=== PATIENT | female | born 1985 | race African-American/Black ===

== ENCOUNTER 2020-05-31 06:15 | Inpatient (IN) | payer OTHER ==
[2020-05-31] MEDS: ELECTROLYTE-148 SOLN 1,000 ML IV SCH ×2 (08:10→12:36)
--- NOTE | 2020-05-31 08:14 | HP ---
Past Medical History - Admission Chief Complaint: contraction, leakage of fluid History Source: Patient - Past Medical History ...: 4 ...Para: 2 ...Term: 0 ...: 0 ...Spon : 0 ...Induced : 1 ...Living Children: 2 ... Weeks Gestation by Dates: 40 - Past Surgical History Hx Myomectomy: No Hx Transabdominal Cerclage: No - Alcohol/Substance Use Hx Alcohol Use: No History of Substance Use: reports: None Home Medications - Allergies Allergies/Adverse Reactions: Allergies Allergy/AdvReac Type Severity Reaction Status Date / Time No Known Allergies Allergy Verified 05/31/20 08:00 Review of Systems - Review of Systems Constitutional: reports: No Symptoms Cardiovascular: reports: No Symptoms Respiratory: reports: No Symptoms Gastrointestinal: reports: No Symptoms Genitourinary: reports: No Symptoms Physical Exam - Maternity Constitutional: Yes: Well Nourished Cardiovascular: Yes: WNL Lungs: Clear to auscultation - Abdominal Exam/OB Fundal Height: 40 Number of Fetuses: Single Presentation: Vertex Contractions: Yes Regularity: Regular Heart Rate (range): 140 Category: I Accelerations: Uniform Decelerations: None - Vaginal Exam/OB Dilatation (cm): 4 Effacement (%): 80 Amniotic Membrane Status: Leaking Amniotic Fluid: Yes: Clear Presentation: Vertex/Position Station: 0 Hemorrhage Risk Assessment - Risk Factors Medium Risk Factors: Yes: None High Risk Factors: Yes: None Risk Score: 1 Risk Level: Medium Risk Problem List - Problems (1) 40 weeks gestation of Code(s): Z3A.40 - 40 WEEKS GESTATION OF Assessment/Plan 34yo 2 40W3D, GBS negative Admit to labor and delivery labs Informed consent anticipate vagial delivery
[2020-05-31 08:25] LABS: POC NITRAZINE NEG
[2020-05-31 09:01] LABS: BASO % 0.6 % (0-2.0); EOS % 0.7 % (0-4.5); HEMATOCRIT 34.5 % (32.4-45.2); HEMOGLOBIN 11.3 GM/dL (10.7-15.3); INR 0.98 (0.83-1.09); LYMPH % 15.3 % (8-40); MCH 29.1 pg (25.7-33.7); MCHC 32.9 g/dl (32.0-36.0); MEAN CELL VOLUME 88.5 fl (80-96); MEAN PLT VOLUME 9.8 fl (7.5-11.1); MONO % 5.8 % (3.8-10.2); NEUT % 77.6 % (42.8-82.8); PROTHROMBIN TIME (PATIENT) 11.6 SEC (9.7-13.0); RDW 18.5 % (11.6-15.6); WHITE BLOOD COUNT 10.6 K/mm3 (4.0-10.0)
[2020-05-31 09:02] VITALS: BMI 41.1
[2020-05-31 09:04] LABS: ACTIVATED PTT 21.5 SECONDS (25.2-36.5)
[2020-05-31] MEDS ORDERED: BUTORPHANOL TARTRATE 1 MG/ML VIAL IVPB ONE (09:15)
[2020-05-31 09:24] LABS: ALBUMIN 3.1 g/dl (3.4-5.0); BILIRUBIN,TOTAL 0.3 mg/dL (0.2-1); BLOOD UREA NITROGEN 5.6 mg/dL (7-18); CALCIUM 9.3 mg/dL (8.5-10.1); CREATININE 0.5 mg/dL (0.55-1.3); POTASSIUM 3.7 mmol/L (3.5-5.1); TOT PROT 6.7 g/dl (6.4-8.2)
[2020-05-31] MEDS ORDERED: FENTANYL/BUPIVACAINE/NS/PF - PCEA - 50 ML DISP.SYRIN EP ONE (11:01)
[2020-05-31] MEDS ORDERED: PCA PUMP NR ONE (11:02)
--- NOTE | 2020-05-31 11:05 | PD.OB.PROG ---
Past Medical History - Primary Care Physician PCP:: Helena Esqueda Documenting Provider Type: Laborist - Admission Chief Complaint: painful contractions History of Present Illness: ROM, in labor. Given Stadol/Phenergan. 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 Weeks Gestation by Dates: 40.2 ...EDC by Dates: 05/29/20 ...EDC by Sono: 05/23/20 Heme/Onc: Denies/None Infectious Disease: Denies/None Psych: Denies/None Musculoskeletal: Denies/None Rheumatology: Denies/None ENT: Denies/None Endocrine: Denies/None Dermatology: Denies/None - Past Surgical History Past Surgical History: Yes: None - Smoking History Smoking history: Never smoked Have you smoked in the past 12 months: No - Alcohol/Substance Use Hx Alcohol Use: No History of Substance Use: reports: None Review of Systems - Review of Systems Constitutional: reports: No Symptoms Eyes: reports: No Symptoms HENT: reports: No Symptoms Neck: reports: No Symptoms Cardiovascular: reports: No Symptoms Respiratory: reports: No Symptoms Gastrointestinal: reports: No Symptoms Genitourinary: reports: No Symptoms Breasts: reports: No Symptoms Reported Musculoskeletal: reports: No Symptoms Integumentary: reports: No Symptoms Neurological: reports: No Symptoms Endocrine: reports: No Symptoms Hematology/Lymphatic: reports: No Symptoms Psychiatric: reports: No Symptoms Physical Exam - Obstetrical Vital Signs: Vital Signs Temperature 98.2 F 07/08/20 08:47 Pulse Rate 88 05/31/20 08:47 Respiratory Rate 20 05/31/20 08:47 Blood Pressure 136/81 05/31/20 08:47 O2 Sat by Pulse Oximetry (%) Constitutional: Yes: Well Nourished, No Distress, Calm Eyes: Yes: WNL, Conjunctiva Clear, EOM Intact HENT: Yes: WNL, Atraumatic, Normocephalic Neck: Yes: WNL, Supple, Trachea Midline Cardiovascular: Yes: WNL, Regular Rate and Rhythm Lungs: Clear to auscultation Breast(s): Yes: WNL - Abdominal Exam/OB Fundal Height: 40 Number of Fetuses: Single Presentation: Vertex Contractions: Yes Regularity: Regular Intensity: Mod/Strong Monitor Mode: External Heart Rate (range): 140 Heart Rate Location: [facility] Category: I Accelerations: Uniform Decelerations: None - Vaginal Exam/OB Vaginal Exam Deferred: Yes Vaginal Bleeding: No Dilatation (cm): 5 Effacement (%): 70 Amniotic Membrane Status: Ruptured Amniotic Fluid: Yes: Clear Presentation: Vertex/Position Station: -1 - Physical Exam Musculoskeletal: Yes: WNL - Labs Lab Results: CBC, BMP 05/31/20 08:25 05/31/20 08:25 Problem List - Problems (1) Active labor Code(s): [id number] - Assessment/Plan Active labor. Needs pain relief. Epidural offered; pt accepts. Expecting .
[2020-05-31] MEDS ORDERED: NALOXONE HCL 0.4 MG/ML VIAL IVPUSH PRN (12:21)
[2020-05-31] MEDS ORDERED: FENTANYL/BUPIVACAINE/NS/PF - PCEA - 50 ML DISP.SYRIN EP SCH (12:30)
[2020-05-31 13:45] LABS: BASO % 0.2 % (0-2.0); EOS % 0.1 % (0-4.5); HEMATOCRIT 34.8 % (32.4-45.2); HEMOGLOBIN 11.3 GM/dL (10.7-15.3); LYMPH % 4.7 % (8-40); MCH 28.8 pg (25.7-33.7); MCHC 32.4 g/dl (32.0-36.0); MEAN CELL VOLUME 89.1 fl (80-96); MEAN PLT VOLUME 9.1 fl (7.5-11.1); MONO % 3.8 % (3.8-10.2); NEUT % 91.2 % (42.8-82.8); PLATELET COUNT 185 K/MM3 (134-434); RBC 3.91 M/mm3 (3.60-5.2); RDW 18.5 % (11.6-15.6); WHITE BLOOD COUNT 14.2 K/mm3 (4.0-10.0)
[2020-05-31] MEDS ORDERED: OXYTOCIN 30 UNITS in 0.9% NS 30 UNIT/500 ML INFUS.BAG IVPB ONE (14:22)
--- NOTE | 2020-05-31 14:27 | PN ---
Progress Note (short form) - Note Progress Note: Full term gestation in labor BP 140-150/70 - 90/mmHg EFM - Baseline 140/min, moderate variability, accelerations, no decelerations Tocos - q8 Pelvic - 8cm/100%/0 Plan - Full term gestation in labor For oxytocin augmentation Anticipate vaginal delivery
[2020-05-31] MEDS ORDERED: OXYTOCIN 30 UNITS in 0.9% NS 30 UNIT/500 ML INFUS.BAG IVPB SCH (14:30)
[2020-05-31 14:35] LABS: ANISOCYTOSIS 1+; MACROCYTOSIS 0; OVALOCYTE 1+; PLATELET ESTIMATE NORMAL
[2020-05-31] MEDS ORDERED: OXYTOCIN 20 UNITS in 0.9% NS 20 UNIT/1,000 ML INFUS.BAG IV ONE (14:44)
[2020-05-31] MEDS ORDERED: BUPIVACAINE HCL/PF 0.25% (2.5MG/ML) 10 ML VIAL ONE (15:27)
--- NOTE | 2020-05-31 16:56 | PN ---
Progress Note (short form) - Note Progress Note: Full term gestation in labor VSS, afebrile EFM - Baseline 140/min. moderate variability, accelerations, no decelerations Tocos q 4 Pelvic - Anterior lip/100%/0 Plan - Anticipate vaginal delivery
[2020-05-31 18:24] LABS: CORD BASE EXCESS -7.2 mmol/L (0-2); CORD HCO3 20.7 mmHg (20-29); CORD PCO2 50.9 mmHg (30-78); CORD pH 7.228 (7.14-7.44)
[2020-05-31 18:27] LABS: CORD BASE EXCESS -2.6 mmol/L (0-2); CORD HCO3 21.4 mmHg (20-29); CORD PCO2 35.2 mmHg (30-78); CORD pH 7.401 (7.14-7.44)
[2020-05-31] MEDS ORDERED: BENZOCAINE 28 GM HEMORRHOIDAL OINTMENT TP PRN (18:55)
[2020-05-31] MEDS ORDERED: METHYLERGONOVINE MALEATE 0.2 MG/1 ML AMP IM PRN (18:55)
[2020-05-31] MEDS ORDERED: BENZOCAINE 20% 57 GM BOTTLE TP PRN (18:55)
[2020-05-31] MEDS ORDERED: WITCH HAZEL 50% (TUCKS) 40 PAD/JAR PAD TP PRN (18:55)
[2020-05-31] MEDS ORDERED: ACETAMINOPHEN 325 MG TABLET (FP) PO PRN (18:55)
[2020-05-31] MEDS ORDERED: IBUPROFEN 600 MG TABLET (FP) PO PRN (18:55)
--- NOTE | 2020-05-31 18:55 | PN ---
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
[2020-05-31] MEDS ORDERED: OXYTOCIN 20 UNITS in 0.9% NS 20 UNIT/1,000 ML INFUS.BAG IV SCH (19:00)
[2020-05-31] MEDS ORDERED: FERROUS SO4 325 MG TABLET (FP) PO SCH (19:00)
[2020-05-31] MEDS ORDERED: DOCUSATE SODIUM 100 MG CAPSULE (FP) PO SCH (22:00)
[2020-06-01 08:38] LABS: BASO % 0.1 % (0-2.0); EOS % 0.5 % (0-4.5); HEMOGLOBIN 9.8 GM/dL (10.7-15.3); LYMPH % 13.9 % (8-40); MCH 29.2 pg (25.7-33.7); MCHC 32.8 g/dl (32.0-36.0); MEAN CELL VOLUME 89.1 fl (80-96); MEAN PLT VOLUME 9.2 fl (7.5-11.1); MONO % 9.7 % (3.8-10.2); NEUT % 75.8 % (42.8-82.8); PLATELET COUNT 171 K/MM3 (134-434); RBC 3.37 M/mm3 (3.60-5.2); RDW 17.7 % (11.6-15.6); WHITE BLOOD COUNT 12.9 K/mm3 (4.0-10.0)
[2020-06-01] MEDS: PRENATAL VITAMINS W/ FOLIC ACID TABLET (FP) PO SCH (10:18)
[2020-06-01] MEDS ORDERED: SENNOSIDES/DOCUSATE COMBO (SENNA PLUS) TABLET (UD) PO PRN (22:00)
--- NOTE | 2020-06-01 22:42 | PN ---
Post Progress Note Post Day: 1 Type of Delivery: Vital Signs: Vital Signs Temperature 98.7 F 06/01/20 21:56 Pulse Rate 81 06/01/20 21:56 Respiratory Rate 18 06/01/20 21:56 Blood Pressure 133/66 06/01/20 21:56 O2 Sat by Pulse Oximetry (%) 99 05/31/20 18:15 Breast Exam: Yes: Soft Uterus: Yes: Fundus Firm, Fundus below umbilicus, Non-tender Abdomen/GI: Yes: Abdomen soft, Tolerating PO Lochia: Yes: Rubra Lochia, amount: Small Extremities: Yes: Calves non-tender Perineum: Yes: Intact Activity: Ambulating - Labs Labs: CBC WBC 12.9 K/mm3 (4.0-10.0) H 06/01/20 07:18 Corrected WBC (auto) Technical Lead 05/31/20 08:25 RBC 3.37 M/mm3 (3.60-5.2) L 06/01/20 07:18 Hgb 9.8 GM/dL (10.7-15.3) L 06/01/20 07:18 Hct 30.0 % (32.4-45.2) L 06/01/20 07:18 MCV 89.1 fl (80-96) 06/01/20 07:18 MCH 29.2 pg (25.7-33.7) 06/01/20 07:18 MCHC 32.8 g/dl (32.0-36.0) 06/01/20 07:18 RDW 17.7 % (11.6-15.6) H 06/01/20 07:18 Plt Count 171 K/MM3 (134-434) 06/01/20 07:18 MPV 9.2 fl (7.5-11.1) 06/01/20 07:18 Absolute Neuts (auto) 9.8 K/mm3 (1.5-8.0) H 06/01/20 07:18 Neutrophils % 75.8 % (42.8-82.8) 06/01/20 07:18 Neutrophils % (Manual) 90.1 % (42.8-82.8) H 05/31/20 13:20 Band Neutrophils % 1.0 % 05/31/20 13:20 Lymphocytes % 13.9 % (8-40) D 06/01/20 07:18 Lymphocytes % (Manual) 3.0 % (8-40) L 05/31/20 13:20 Monocytes % 9.7 % (3.8-10.2) D 06/01/20 07:18 Monocytes % (Manual) 5 % (3.8-10.2) 05/31/20 13:20 Eosinophils % 0.5 % (0-4.5) D 06/01/20 07:18 Eosinophils % (Manual) 0.0 % (0-4.5) 05/31/20 13:20 Basophils % 0.1 % (0-2.0) 06/01/20 07:18 Basophils % (Manual) 0.0 % (0-2.0) 05/31/20 13:20 Myelocytes % (Man) 1 % (0-2) 05/31/20 13:20 Promyelocytes % (Man) 0 % (0-2) 05/31/20 13:20 Blast Cells % (Manual) 0 % (0-0) 05/31/20 13:20 Nucleated RBC % 0 % (0-0) 06/01/20 07:18 Metamyelocytes 0 % (0-2) 05/31/20 13:20 Hypochromia 0 05/31/20 13:20 Platelet Estimate Normal 05/31/20 13:20 Platelet Comment Technical Lead 05/31/20 08:25 Polychromasia 0 05/31/20 13:20 Poikilocytosis 1+ 05/31/20 13:20 Anisocytosis 1+ 05/31/20 13:20 Macrocytosis 0 05/31/20 13:20 Ovalocytes 1+ 05/31/20 13:20 [place] Cells 1+ 05/31/20 13:20 Assessment/Plan S/P , ppd #1, with no complaints Continue management.
--- NOTE | 2020-06-02 08:30 | DS ---
Physical Exam-CONTROLLED AREA CHECKER Vital Signs: Vital Signs Temperature 98.7 F 06/01/20 21:56 Pulse Rate 81 06/01/20 21:56 Respiratory Rate 18 06/01/20 21:56 Blood Pressure 133/66 06/01/20 21:56 O2 Sat by Pulse Oximetry (%) 99 05/31/20 18:15 Constitutional: Yes: Well Nourished Eyes: Yes: WNL HENT: Yes: WNL Neck: Yes: WNL Cardiovascular: Yes: WNL Respiratory: Yes: WNL Gastrointestinal: Yes: WNL ...Rectal Exam: Yes: WNL Renal/: Yes: WNL Pelvis: Yes: WNL External Genitalia: Yes: Normal Vaginal Exam: Yes: Normal Cervix: Yes: Normal Uterus: Yes: Normal Adnexa: Normal: Bilateral ....Post : Yes: Uterus firm, Uterus non-tender, Slight lochia rubra Breast(s): Yes: WNL Musculoskeletal: Yes: WNL Extremities: Yes: WNL Edema: No Integumentary: Yes: WNL Neurological: Yes: WNL ...Motor Strength: WNL Psychiatric: Yes: WNL Labs: CBC, BMP 06/01/20 07:18 05/31/20 08:25 Delivery - Delivery Vaginal Delivery: Spontaneous Type of Anesthesia: Epidural Episiotomy/Laceration: None EBL (cc): 300 Delivery, Single - Stages of Labor Date 1st Stage Initiatied: 05/31/20 Time 1st Stage Initiated: 02:30 Date 2nd Stage Initiated: 05/31/20 Time 2nd Stage Initiated: 17:25 Date of Delivery: 05/31/20 Time of Delivery: 17:30 Time Placenta Delivered: 17:35 - Condition of Performance Architect/Stone Product Fabricator Present: No Infant Gender: Male Weight: 4.026 kg Total Hours ROM (Hrs/Mins): 9/50 - 1 Minute Total Score: 8 5 Minutes Total Score: 9 - [place] Feeding Plan Initial Plan: Elected not to breastfeed exclusively throughout hospitalization Discharge Summary Problems reviewed: Yes Reason For Visit: LABOR Current Active Problems 40 weeks gestation of (Acute) Active labor (Acute) Condition: Stable - Instructions Disposition: HOME - Home Medications Comprehensive Discharge Medication List: Ambulatory Orders 19 Tablet 1 tab PO DAILY 05/31/20
[2020-06-02] MEDS: PRENATAL VITAMINS W/ FOLIC ACID TABLET (FP) PO SCH (09:13)
[2020-06-02 09:50] VITALS: BP 115/63; PULSE 72; TEMP 98.5
== END 2020-06-02 15:20 | disposition home or self-care (01) | DRG 560 ==
LOC: JDEL 06:15 → JLDR 07:40 → J3N 21:11
PROVIDERS: ADMIT Obstetrics & Gynecology; ATTEND Obstetrics & Gynecology
PROC: 10E0XZZ Delivery of Products of Conception, External Approach (ICD-10-PCS; principal; 2020-05-31)
DX: O48.0 Post-term pregnancy (principal); Z3A.40 40 weeks gestation of pregnancy; Z37.0 Single live birth
CPT/HCPCS: 36415; 36600; 59409; 80053; 82803; 83986-QW; 85025; 85610; 85730; 86780; 86850; 86900; 86901; U0003

== ENCOUNTER 2021-06-27 04:28 | Day surgery (SDC) | payer OTHER ==
[2021-06-26 09:26] VITALS: BMI 39.1
[2021-06-27] MEDS ORDERED: MIDAZOLAM HCL 2 MG/2 ML SINGLE DOSE VIAL ONE (12:41)
[2021-06-27] MEDS ORDERED: LIDOCAINE 1%/EPI 1:100000 (20 ML MULTI DOSE VIAL) IJ ONE (13:09)
[2021-06-27] MEDS ORDERED: IODINE/POTASSIUM IODIDE 5%/10% 14 ML BOTTLE NR ONE (13:20)
[2021-06-27] MEDS ORDERED: FERRIC SUBSULFATE 500 ML BOTTLE TP ONE (13:21)
[2021-06-27] MEDS ORDERED: ACETAMINOPHEN 325 MG TABLET (FP) PO PRN (13:30)
[2021-06-27] MEDS ORDERED: IBUPROFEN 400 MG TABLET (FP) PO PRN (13:30)
[2021-06-27 17:16] VITALS: BP 117/70; PULSE 86; TEMP 97.8
== END 2021-06-27 17:00 | disposition home or self-care (01) ==
LOC: JASU-SURG 04:28
PROVIDERS: ATTEND Specialist
PROC: 0UBC7ZX Excision of Cervix, Via Natural or Artificial Opening, Diagnostic (ICD-10-PCS; principal; 2021-06-27 11:00)
DX: D06.9 Carcinoma in situ of cervix, unspecified (principal)
CPT/HCPCS: 81025; 88305-TC; 94760